=== PATIENT | female | born 1985 | race African-American/Black ===

== ENCOUNTER 2017-05-09 08:53 | Emergency (ER) | payer MEDICARE, MEDICAID ==
[~2017-05-09] VITALS: Ht 162.6 cm; Wt 90.7 kg
[2017-05-09 10:15] VITALS: BP 116/74
== END 2017-05-09 10:30 | disposition home or self-care (01) ==
LOC: ER 08:53
DX: M79.7 Fibromyalgia (principal); F17.210 Nicotine dependence, cigarettes, uncomplicated; Y04.0XXA Assault by unarmed brawl or fight, initial encounter